=== PATIENT | male | born 1950 | race Caucasian/White ===

== ENCOUNTER 2025-02-06 18:31 | Emergency (ER) | payer MEDICARE, SELFPAY ==
[2025-02-06 18:34] VITALS: BP 81/53; PULSE 85; RESP 16; TEMP 36.7; O2SAT 99; BMI 23.1
--- NOTE | 2025-02-06 18:41 | W.ED.WEAKNES ---
Documented by User: Denisse Reed MD 02/06/25 21:20 HPI - Weakness General: Chief complaint: Weakness Stated complaint: low bp - weak Time Seen by Provider: 02/06/25 18:39 Review of Systems Narrative: Constitutional symptoms: Negative except as documented in HPI. Skin symptoms: Negative except as documented in HPI. Eye symptoms: Negative except as documented in HPI. ENMT symptoms: Negative except as documented in HPI. Respiratory symptoms: Negative except as documented in HPI. Cardiovascular symptoms: Negative except as documented in HPI. Gastrointestinal symptoms: Negative except as documented in HPI. Genitourinary symptoms: Negative except as documented in HPI. Musculoskeletal symptoms: Negative except as documented in HPI. Neurologic symptoms: Negative except as documented in HPI. Psychiatric symptoms: Negative except as documented in HPI. Endocrine symptoms: Negative except as documented in HPI. Physical Exam Narrative: EXAM NARRATIVE: General: Alert, no acute distress. Skin: Warm, dry. Head: Normocephalic, atraumatic. Neck: Supple, trachea midline. Eye: Extraocular movements are intact. Ears, nose, mouth and throat: mucosa moist. Cardiovascular: Regular, Normal peripheral perfusion. Respiratory: Lungs are clear to auscultation, respirations are non-labored, breath sounds are equal, Symmetrical chest wall expansion. Gastrointestinal: Soft, Nontender, Non distended Musculoskeletal: Normal ROM, no deformity. Neurological: Alert and oriented, No focal neurological deficit observed. Psychiatric: Cooperative, appropriate mood & affect. Course Vital Signs: Vital signs: Vital Signs Temperature 98.1 F 02/06/25 18:34 Pulse Rate 85 02/06/25 18:34 Respiratory Rate 16 02/06/25 18:34 Blood Pressure 81/53 02/06/25 18:34 Pulse Oximetry 99 02/06/25 18:34 Oxygen Delivery Me thod Room Air 02/06/25 18:34 MDM - Weakness Medical Decision Making Medical decision making: Differential diagnosis for patient presenting with generalized weakness including but not limited to and based on the above HPI, review of systems and physical exam: Sepsis. Dehydration. Renal failure. Electrolyte abnormalities. Anemia. Congestive heart failure. Hypotension. Coronary syndrome. Hepatitis. Cirrhosis. Infections such as pneumonia, urinary tract infection, Tick bourne illness, Cellulitis, Viral infections including influenza and Covid-19. Workup: labwork and lab/exam driven imaging ordered to evaluate, rule in and rule out above pathologies. Lab Review: Laboratory results were reviewed and interpreted by myself the emergency room physician. Mild leukocytosis. No anemia. BUN is elevated at 24 with a mild elevation of creatinine at 1.2. Lactic acid is negative. Urinalysis is negative for infection. Chest x-ray: Faint patchy densities involving the lung bases which might represent a pneumonia. Patient states he has had a cough but it is not much worse than usual. No fever. He is not short of breath or requiring oxygen. Will place him on doxycycline since he has had a cough. This was reviewed and interpreted by myself the emergency room physician. I also reviewed the radiology report. X-ray of the knee: No acute fractures or dislocations. This was reviewed and interpreted by myself the emergency room physician. I also reviewed the radiology report. I reviewed the patient's medical record. Reexamination: Patient remained stable. No increased work of breathing. No altered mental status. No focal motor deficits. Assessment and plan: Dehydration Hypotension Possible community-acquired pneumonia -2 L normal saline bolus, IV doxycycline. - Discharged home - Discussed plan with patient. Answered any questions. - Evaluation and treatment of this problem were appropriate in the emergency setting. Lab Data 02/06/25 19:57 02/06/25 19:57 Radiology Impressions Chest X-Ray 02/06/25 18:48 IMPRESSION: Faint patchy density involving both lung bases which may represent developing pneumonia Knee X-Ray 02/06/25 18:48 IMPRESSION: No acute findings. Laboratory Results WBC 13.65 10^3/uL (3.29-11.43) H 02/06/25 19:57 RBC 3.36 10^6/uL (3.85-5.65) L 02/06/25 19:57 Hgb 10.80 g/dL (11.27-16.99) L 02/06/25 19:57 Hct 34.2 % (37-53) L 02/06/25 19:57 MCV 101.8 fl (82-101) H 02/06/25 19:57 MCH 32.1 pg (27-33) 02/06/25 19:57 MCHC 31.6 g/dL (30-55) 02/06/25 19:57 RDW 13.4 % (12.1-15.1) 02/06/25 19:57 Plt Count 203 10^3/cmm (157-399) 02/06/25 19:57 MPV 10.2 fL (7.4-10.4) 02/06/25 19:57 Neut % (Auto) 77.5 % 02/06/25 19:57 Lymph % (Auto) 10.8 % 02/06/25 19:57 [place] % (Auto) 10.2 % 02/06/25 19:57 Eos % (Auto) 0.3 % 02/06/25 19:57 Baso % (Auto) 0.4 % 02/06/25 19:57 Neut # (Auto) 10.59 10^3/uL (1.8-7.7) H 02/06/25 19:57 Lymph # (Auto) 1.5 10^3/uL (0.8-4.8) 02/06/25 19:57 [place] # (Auto) 1.4 10^3/uL (0.2-0.9) H 02/06/25 19:57 Eos # (Auto) 0.0 10^3/uL (0.0-0.8) 02/06/25 19:57 Baso # (Auto) 0.1 10^3/uL (0.0-0.1) 02/06/25 19:57 Nucleated RBC % (auto) 0 % 02/06/25 19:57 Nucleated RBCs # 0.0 /100WBC 02/06/25 19:57 Sodium 137 mmol/L (136-145) 02/06/25 19:57 Potassium 4.5 mmol/L (3.5-5.1) 02/06/25 19:57 Chloride 107 mmol/L (98-107) 02/06/25 19:57 Carbon Dioxide 19 mmol/L (22-29) L 02/06/25 19:57 Anion Gap 15.5 (5-19) 02/06/25 19:57 BUN 24 mg/dL (8-23) H 02/06/25 19:57 Creatinine 1.2 mg/dL (0.7-1.2) 02/06/25 19:57 GFR Calculation Not Reportable 02/06/25 19:57 Glucose 85 mg/dL (65-115) 02/06/25 19:57 Calculated Osmolality 287 mOsm/kg (285-295) 02/06/25 19:57 Lactic Acid 1.2 mmol/L (0.5-2.2) 02/06/25 19:57 Calcium 7.7 mg/dL (8.5-10.5) L 02/06/25 19:57 Total Bilirubin 0.4 mg/dL (0.15-1.2) 02/06/25 19:57 AST 79 U/L (0-40) H 02/06/25 19:57 ALT 92 U/L (0-41) H 02/06/25 19:57 Alkaline Phosphatase 126 U/L (40-130) 02/06/25 19:57 Creatine Kinase 277 U/L (39-308) 02/06/25 19:57 C-Reactive Protein 60.7 mg/L (0.0-4.9) H 02/06/25 19:57 Total Protein 6.1 g/dL (6.6-8.7) L 02/06/25 19:57 Albumin 3.3 g/dL (3.5-5.2) L 02/06/25 19:57 Globulin 2.8 g/dL (1.3-4.6) 02/06/25 19:57 Urine Color Yellow (Yellow) 02/06/25 19:35 Urine Appearance Clear (CLEAR) 02/06/25 19:35 Urine pH 5.5 (5-7) 02/06/25 19:35 Ur Specific Beatrice 1.012 (1.005-1.030) 02/06/25 19:35 Urine Protein Negative (Negative) 02/06/25 19:35 Urine Glucose (UA) Negative (Normal) 02/06/25 19:35 Urine Ketones Negative (Negative) 02/06/25 19:35 Urine Blood 2+ (Negative) A 02/06/25 19:35 Urine Nitrate Negative (Negative) 02/06/25 19:35 Urine Bilirubin Negative (Negative) 02/06/25 19:35 Urine Urobilinogen 0.2 mg/dL (Negative) 02/06/25 19:35 Ur Leukocyte Esterase Negative (Negative) 02/06/25 19:35 Urine RBC 3-5 /hpf (0-2) 02/06/25 19:35 Urine WBC 0-5 /hpf (0-5) 02/06/25 19:35 Ur Squamous Epith Cells 0-5 /hpf (0-5) 02/06/25 19:35 Amorphous Sediment Not Reportable 02/06/25 19:35 Urine Bacteria None seen /hpf (NONE) 02/06/25 19:35 Hyaline Casts 0.40 /lpf 02/06/25 19:35 All radiology interpretation(s) finalized by discharge Discharge Plan Discharge Patient Disposition: Home Clinical Impression: Dehydration, Hypotension, Community acquired pneumonia Condition: Stable Prescriptions: New doxycycline hyclate 100 mg capsule 100 mg PO BID 7 Days Qty: 14 0RF Discharge Orders: Discharge ED (Routine); Ordered 02/06/25 Ordered By: Denisse Reed Patient Instructions: Opioid Safety, Pain Management Activity Restrictions/Additional Instructions: Thank you for choosing [facility] for your healthcare needs today. You have been screened and evaluated and felt safe for discharge. Health conditions do change or evolve sometimes and as such it is important that you follow up with your Primary Doctor to be re checked, 3-5 days is a general good time frame for follow up. You are always welcome to return to the ED for re assessment if your symptoms are worsening or you have new concerns Print Language: Austrian Coding Level of Care Code ED Welt Stitch Cleaner for Chg Fwd Related Data Previous Rx's ?Medication ?Instructions ?Recorded doxycycline hyclate 100 mg capsule 100 mg PO BID 7 days #14 caps 02/06/25 Allergies Allergy/AdvReac Type Severity Reaction Status Date / Time meperidine (From Demerol) Allergy Unconscious Verified 02/06/25 18:39 Documented by User: FARHAN Burnett 02/06/25 18:50 HPI - Weakness General: Chief complaint: Weakness Stated complaint: low bp - weak Time Seen by Provider: 02/06/25 18:39 History of Present Illness: Patient is a 74-year-old male with history of hypertension, that was helping his daughter from [place] cleaning out his sister's apartment yesterday, and was weak, and fell x 2, once on his left knee, the second was able to catch himself. He has had lightheadedness although denies any dizziness. No nausea or vomiting. He just feels weak. He was brought in by EMS and blood pressure was low 80s/50s with EMS. In triage here is 81/53. Denies any palpitations, or chest pain. No fevers. Course Vital Signs: Vital signs: Vital Signs Temperature 98.1 F 02/06/25 18:34 Pulse Rate 85 02/06/25 18:34 Respiratory Rate 16 02/06/25 18:34 Blood Pressure 81/53 02/06/25 18:34 Pulse Oximetry 99 02/06/25 18:34 Oxygen Delivery Me thod Room Air 02/06/25 18:34 MDM - Weakness Lab Data 02/06/25 19:57 02/06/25 19:57 Radiology Impressions Chest X-Ray 02/06/25 18:48 IMPRESSION: Faint patchy density involving both lung bases which may represent developing pneumonia Knee X-Ray 02/06/25 18:48 IMPRESSION: No acute findings. Laboratory Results WBC 13.65 10^3/uL (3.29-11.43) H 02/06/25 19:57 RBC 3.36 10^6/uL (3.85-5.65) L 02/06/25 19:57 Hgb 10.80 g/dL (11.27-16.99) L 02/06/25 19:57 Hct 34.2 % (37-53) L 02/06/25 19:57 MCV 101.8 fl (82-101) H 02/06/25 19:57 MCH 32.1 pg (27-33) 02/06/25 19:57 MCHC 31.6 g/dL (30-55) 02/06/25 19:57 RDW 13.4 % (12.1-15.1) 02/06/25 19:57 Plt Count 203 10^3/cmm (157-399) 02/06/25 19:57 MPV 10.2 fL (7.4-10.4) 02/06/25 19:57 Neut % (Auto) 77.5 % 02/06/25 19:57 Lymph % (Auto) 10.8 % 02/06/25 19:57 [place] % (Auto) 10.2 % 02/06/25 19:57 Eos % (Auto) 0.3 % 02/06/25 19:57 Baso % (Auto) 0.4 % 02/06/25 19:57 Neut # (Auto) 10.59 10^3/uL (1.8-7.7) H 02/06/25 19:57 Lymph # (Auto) 1.5 10^3/uL (0.8-4.8) 02/06/25 19:57 [place] # (Auto) 1.4 10^3/uL (0.2-0.9) H 02/06/25 19:57 Eos # (Auto) 0.0 10^3/uL (0.0-0.8) 02/06/25 19:57 Baso # (Auto) 0.1 10^3/uL (0.0-0.1) 02/06/25 19:57 Nucleated RBC % (auto) 0 % 02/06/25 19:57 Nucleated RBCs # 0.0 /100WBC 02/06/25 19:57 Sodium 137 mmol/L (136-145) 02/06/25 19:57 Potassium 4.5 mmol/L (3.5-5.1) 02/06/25 19:57 Chloride 107 mmol/L (98-107) 02/06/25 19:57 Carbon Dioxide 19 mmol/L (22-29) L 02/06/25 19:57 Anion Gap 15.5 (5-19) 02/06/25 19:57 BUN 24 mg/dL (8-23) H 02/06/25 19:57 Creatinine 1.2 mg/dL (0.7-1.2) 02/06/25 19:57 GFR Calculation Not Reportable 02/06/25 19:57 Glucose 85 mg/dL (65-115) 02/06/25 19:57 Calculated Osmolality 287 mOsm/kg (285-295) 02/06/25 19:57 Lactic Acid 1.2 mmol/L (0.5-2.2) 02/06/25 19:57 Calcium 7.7 mg/dL (8.5-10.5) L 02/06/25 19:57 Total Bilirubin 0.4 mg/dL (0.15-1.2) 02/06/25 19:57 AST 79 U/L (0-40) H 02/06/25 19:57 ALT 92 U/L (0-41) H 02/06/25 19:57 Alkaline Phosphatase 126 U/L (40-130) 02/06/25 19:57 Creatine Kinase 277 U/L (39-308) 02/06/25 19:57 C-Reactive Protein 60.7 mg/L (0.0-4.9) H 02/06/25 19:57 Total Protein 6.1 g/dL (6.6-8.7) L 02/06/25 19:57 Albumin 3.3 g/dL (3.5-5.2) L 02/06/25 19:57 Globulin 2.8 g/dL (1.3-4.6) 02/06/25 19:57 Urine Color Yellow (Yellow) 02/06/25 19:35 Urine Appearance Clear (CLEAR) 02/06/25 19:35 Urine pH 5.5 (5-7) 02/06/25 19:35 Ur Specific Beatrice 1.012 (1.005-1.030) 02/06/25 19:35 Urine Protein Negative (Negative) 02/06/25 19:35 Urine Glucose (UA) Negative (Normal) 02/06/25 19:35 Urine Ketones Negative (Negative) 02/06/25 19:35 Urine Blood 2+ (Negative) A 02/06/25 19:35 Urine Nitrate Negative (Negative) 02/06/25 19:35 Urine Bilirubin Negative (Negative) 02/06/25 19:35 Urine Urobilinogen 0.2 mg/dL (Negative) 02/06/25 19:35 Ur Leukocyte Esterase Negative (Negative) 02/06/25 19:35 Urine RBC 3-5 /hpf (0-2) 02/06/25 19:35 Urine WBC 0-5 /hpf (0-5) 02/06/25 19:35 Ur Squamous Epith Cells 0-5 /hpf (0-5) 02/06/25 19:35 Amorphous Sediment Not Reportable 02/06/25 19:35 Urine Bacteria None seen /hpf (NONE) 02/06/25 19:35 Hyaline Casts 0.40 /lpf 02/06/25 19:35 Discharge Plan Discharge Patient Disposition: Home Clinical Impression: Dehydration, Hypotension, Community acquired pneumonia Condition: Stable Prescriptions: New doxycycline hyclate 100 mg capsule 100 mg PO BID 7 Days Qty: 14 0RF Discharge Orders: Discharge ED (Routine); Ordered 02/06/25 Ordered By: Denisse Reed Patient Instructions: Opioid Safety, Pain Management Activity Restrictions/Additional Instructions: Thank you for choosing [facility] for your healthcare needs today. You have been screened and evaluated and felt safe for discharge. Health conditions do change or evolve sometimes and as such it is important that you follow up with your Primary Doctor to be re checked, 3-5 days is a general good time frame for follow up. You are always welcome to return to the ED for re assessment if your symptoms are worsening or you have new concerns Print Language: Austrian Coding Level of Care Code ED Welt Stitch Cleaner for Esthela Fwd Related Data Previous Rx's ?Medication ?Instructions ?Recorded doxycycline hyclate 100 mg capsule 100 mg PO BID 7 days #14 caps 02/06/25 Allergies Allergy/AdvReac Type Severity Reaction Status Date / Time meperidine (From Demerol) Allergy Unconscious Verified 02/06/25 18:39
--- NOTE | 2025-02-06 18:48 | XRR_ITS ---
PROCEDURE INFORMATION: Exam: XR Left Knee Exam date and time: 02/06/2025 6:58 PM Age: 74 years old Clinical indication: Injury or trauma; Fall; Blunt trauma; Knee; Left; Additional info: Direct fall with pain TECHNIQUE: Imaging protocol: Radiologic exam of the left knee. Views: 3 views. COMPARISON: No relevant prior studies available. FINDINGS: Bones/joints: Normal. Soft tissues: Normal. XR/XR knee LT 3V* [id number] IMPRESSION: No acute findings.
--- NOTE | 2025-02-06 18:48 | XRR_ITS ---
PROCEDURE INFORMATION: Exam: XR Chest Exam date and time: 02/06/2025 6:58 PM Age: 74 years old Clinical indication: Other: Abnormal breath sounds; Prior surgery; Surgery date: 6+ months; Surgery type: Coronary stents; Additional info: Syncope, abnormal breath sounds TECHNIQUE: Imaging protocol: Radiologic exam of the chest. Views: 1 view. COMPARISON: No relevant prior studies available. FINDINGS: Lungs: There is faint patchy density involving both lung bases and both lungs demonstrate diffuse interstitial coarsening. No dense consolidation noted. Pleural spaces: Unremarkable. No pleural effusion. No pneumothorax. Heart/Mediastinum: Unremarkable. No cardiomegaly. Bones/joints: Unremarkable. XR/XR chest 1V portable [id number] IMPRESSION: Faint patchy density involving both lung bases which may represent developing pneumonia
[2025-02-06 19:00] VITALS: PULSE 74; O2SAT 97
[2025-02-06] MEDS: sodium chloride 0.9% 1,000 ML 999 ML IV ×2 (19:12→21:21)
[2025-02-06 19:45] LABS: Bilirubin Urine Negative (Negative); Blood Urine 2+ (Negative); Glucose Urine UA Negative (Normal); Ketones Urine Negative (Negative); Leukocyte Esterase Urine Negative (Negative); Nitrate Urine Negative (Negative); Protein Urine Negative (Negative); Specific Gravity, Urine 1.012 (1.005-1.030); Urine Appearance Clear (CLEAR); Urine Color Yellow (Yellow); Urobilinogen Urine 0.2 mg/dL (Negative); pH Urine 5.5 (5-7)
[2025-02-06 19:51] LABS: Add Urine Microscopic? YES; Bacteria Urine None Seen /hpf; Squamous Epithelial Cell Urine 0-5 /hpf (0-5); WBC Urine 0-5 /hpf (0-5)
--- NOTE | 2025-02-06 19:52 | ECG_ITS ---
[email or web address] Test Date: 2025-02-06 Pat Name: Nando Trevino Department: Room: Gender: Male [employer] Range Controller: : 1950 Requested By: Kait Johnson Order Number: [id number] Bony MD: Nicole Calix M.D. Measurements Intervals Grubbs Rate: 90 P: 49 RI: 132 QRS: 8 QRSD: 94 T: 6 QT: 335 QTc: 411 Interpretive Statements SINUS RHYTHM WITH SINUS ARRHYTHMIA LOW QRS VOLTAGE IN PRECORDIAL LEADS [QRS DEFLECTION < 1.0 mV IN CHEST LEADS] INCOMPLETE RIGHT BUNDLE BRANCH BLOCK [90+ ms QRS DURATION, TERMINAL R IN V1/V2, 40+ ms S IN I/aVL/V4/V5/V6] No previous ECG available for comparison Electronically Signed On 02-06-2025 21:49:37 CDT by Nicole Calix M.D. [email or web address]
[2025-02-06 20:00] VITALS: BP 104/64; PULSE 66; O2SAT 96
[2025-02-06 20:22] LABS: Basophils # 0.1 10^3/uL (0.0-0.1); Basophils % 0.4 %; Eosinophils % 0.3 %; Hematocrit 34.2 % (37-53); Lymphocytes # 1.5 10^3/uL (0.8-4.8); Lymphocytes % 10.8 %; Mean Corpuscular HGB Conc 31.6 g/dL (30-55); Mean Corpuscular Hemoglobin 32.1 pg (27-33); Mean Corpuscular Volume 101.8 fl (82-101); Mean Platelet Volume 10.2 fL (7.4-10.4); Monocytes # 1.4 10^3/uL (0.2-0.9); Monocytes % 10.2 %; Neutrophils # 10.59 10^3/uL (1.8-7.7); Neutrophils % 77.5 %; Nucleated Red Blood Cells % 0 %; Platelet Count 203 10^3/cmm (157-399); Red Blood Count 3.36 10^6/uL (3.85-5.65); Red Cell Distribution Width 13.4 % (12.1-15.1); White Blood Count 13.65 10^3/uL (3.29-11.43)
[2025-02-06 20:30] VITALS: PULSE 64; O2SAT 96
[2025-02-06 20:43] LABS: Alanine Aminotransferase 92 U/L (0-41); Albumin Level 3.3 g/dL (3.5-5.2); Alkaline Phosphatase 126 U/L (40-130); Blood Urea Nitrogen 24 mg/dL (8-23); C Reactive Protein 60.7 mg/L (0.0-4.9); Calcium 7.7 mg/dL (8.5-10.5); Carbon Dioxide 19 mmol/L (22-29); Chloride 107 mmol/L (98-107); Creatine Phosphokinase 277 U/L (39-308); Creatinine Clr Calc Pharmacy 50.0386; Globulin 2.8 g/dL (1.3-4.6); Glucose 85 mg/dL (65-115); Osmolality Calculated 287 mOsm/kg (285-295); Sodium 137 mmol/L (136-145); Total Protein 6.1 g/dL (6.6-8.7)
[2025-02-06 20:44] LABS: Lactic Sepsis W/Reflex 1.2 mmol/L (0.5-2.2)
[2025-02-06 20:56] LABS: Anion Gap 15.5 (5-19); Potassium 4.5 mmol/L (3.5-5.1)
[2025-02-06 20:57] LABS: Aspartate Amino Transferase 79 U/L (0-40)
[2025-02-06 21:00] VITALS: PULSE 64; O2SAT 97
[2025-02-06 21:09] LABS: Total Bilirubin 0.4 mg/dL (0.15-1.2)
[2025-02-06] MEDS: doxycycline 100 MG in sodium chloride 0.9% (plus) 100 ML IV (21:20)
[2025-02-07 01:07] VITALS: BP 104/64; PULSE 68; O2SAT 97
== END 2025-02-06 22:40 | disposition home or self-care (01) ==
PROVIDERS: Physician Assistant; Emergency Provider Emergency Medicine
DX: E86.0 Dehydration (principal); I95.9 Hypotension, unspecified; J18.9 Pneumonia, unspecified organism
CPT/HCPCS: 36415; 71045; 73562; 80053; 81001; 82550; 83605; 85025; 86140; 87040; 93005; 96361; 96374; 99285; J3490; J7030